=== PATIENT | male | born 1975 | race Caucasian/White ===

== ENCOUNTER 2017-09-15 18:30 | Emergency (ER) | payer OTHER ==
[~2017-09-15] VITALS: Ht 172.7 cm; Wt 89.3 kg
[2017-09-15 18:51] LABS: HEMATOCRIT 47.6 % (38.0-50.0); HEMOGLOBIN 16.7 G/DL (12.5-16.6); MCH 29.5 PG (29.0-34.0); MCHC 35.1 G/DL (30.0-36.0); MCV 84.1 FL (86-99); PLATELET COUNT 238 K/uL (156-360); RBC DIS.WIDTH-CV 12.6 % (11.8-14.6); RBC DIS.WIDTH-SD 38.6 % (39-53); RED BLOOD COUNT 5.66 M/uL (4.00-5.50); WHITE BLOOD COUNT 12.7 K/uL (4.1-10.2)
[2017-09-15 19:04] LABS: ALBUMIN 4.4 g/dL (3.2-4.8); CHLORIDE 103 mEq/L (99-109); SODIUM 139 mEq/L (136-147)
[2017-09-15 19:06] LABS: GLUCOSE 91 mg/dL (70-99); TOTAL PROTEIN 7.9 g/dL (6.4-8.3)
[2017-09-15 19:08] LABS: TOTAL BILIRUBIN 0.7 mg/dL (0.0-1.0)
[2017-09-15 19:10] LABS: ALKALINE PHOSPHATASE 91 IU/L (3-129); CREATININE 0.9 mg/dL (0.6-1.3); GFR ESTIMATE (CALCULATED) > 59 mL/min/ (58.99-99999)
[2017-09-15 19:11] LABS: UREA NITROGEN (BUN) 10 mg/dL (9-23)
[2017-09-15 19:12] LABS: AST (GOT) 12 IU/L (2-34)
[2017-09-15 19:13] LABS: ALT (GPT) 21 IU/L (3-49)
[2017-09-15 19:28] LABS: APPEARANCE SL.HAZY ((CLEAR)); BILIRUBIN NEGATIVE; BLOOD NEGATIVE; COLOR YELLOW ((YELLOW)); GLUCOSE (STRIP) NEGATIVE; KETONES NEGATIVE; LEUKOCYTES MODERATE; NITRITE NEGATIVE; PROTEIN (STRIP) 30; UROBILINOGEN 0.2 MG/DL (0.2-1.0)
[2017-09-15 19:49] LABS: BACTERIA NONE SEEN /HPF; EPITHELIAL CELLS RARE /HPF; HYALINE CASTS 0-5 /LPF; MUCUS 1+ /LPF; RED BLOOD CELLS 0-5 /HPF (0-5); UCUL ADDED? YES; WHITE BLOOD CELLS TNTC /HPF (0-5)
[2017-09-15] MEDS ORDERED: CIPRO500 MG PO (20:39)
[2017-09-15] MEDS ORDERED: MOTRIN600 MG PO (20:39)
[2017-09-15 20:51] LABS: SOURCE URINE
[2017-09-15 21:20] VITALS: BP 140/72
[2017-09-16 13:35] LABS: CHLAMYDIA TRACHOMATIS NEGATIVE; NEISSERIA GONORRHOEAE NEGATIVE
== END 2017-09-15 21:22 | disposition home or self-care (01) ==
LOC: EME 18:30
DX: N39.0 Urinary tract infection, site not specified (principal); R91.1 Solitary pulmonary nodule; M43.06 Spondylolysis, lumbar region; Z87.891 Personal history of nicotine dependence
CPT/HCPCS: 74177; 80053; 81003; 85027; 87491; 87591; 99281; 99285; J1885; J2405; J3010; J7030